=== PATIENT | female | born 1985 | race Two or more races ===

== ENCOUNTER 2016-10-18 20:57 | Emergency (ER) | payer MEDICAID, OTHER ==
[2016-10-18] MEDS ORDERED: ONDANSETRON 4 MG ODT TAB ONE (22:47)
[2016-10-18] MEDS ORDERED: MAALOX/LIDO2%VISC/SIMETHICONE 40 ML BOT ONE (22:47)
== END 2016-10-18 23:41 | disposition home or self-care (01) ==
LOC: ED 20:57
DX: K29.70 Gastritis, unspecified, without bleeding (principal)
CPT/HCPCS: 99283 ×2; A9270 ×2